=== PATIENT | female | born 1955 | race American Indian/Alaskan Native ===

== ENCOUNTER 2016-11-29 14:20 | Emergency (ER) | payer SELFPAY ==
[2016-11-29 14:32] VITALS: PULSE 78; RESP 20; TEMP 97.8; O2SAT 98
[2016-11-29] MEDS ORDERED: Tetanus/Diphtheria Toxoids 0.5 ml Syringe IM ONE ×2 (14:43→15:15)
[2016-11-29] MEDS ORDERED: Bacitracin 500 Units/gm Oint Foilpak UD ONE (16:44)
--- NOTE | 2016-11-29 17:31 | C.PDOC ---
History Of Present Illness 61 y/o female presents to the ED for evaluation of b/l feet and knee pain which began after she sustained a fall earlier today. Patient states she was walking when she accidentally twisted her left foot and fell onto her knees. She denies fever, chills, head injury, neck pain, LOC, extremity numbness/weakness. - HPI Time Seen by Provider: 11/29/16 14:33 Chief Complaint (Nursing): Trauma History Per: Patient History/Exam Limitations: no limitations Onset/Duration Of Symptoms: Hrs Location Of Injury: Right: Foot, Knee, Left: Foot, Knee Additional History Per: Patient - Fall Fall:Prior To Injury: Tripped Past Medical History Reviewed: Historical Data, Nursing Documentation, Vital Signs Vital Signs: Last Vital Signs Temp 97.8 F 11/29/16 14:29 Pulse 78 11/29/16 17:49 Resp 20 11/29/16 17:49 BP 155/85 H 11/29/16 17:49 Pulse Ox 98 11/29/16 22:01 - Medical History PMH: Hypercholesterolemia Surgical History: No Surg Hx Family History: States: Unknown Family Hx - Social History Hx Alcohol Use: Yes Hx Substance Use: No - Immunization History Hx Tetanus Toxoid Vaccination: No Hx Influenza Vaccination: No Hx Pneumococcal Vaccination: No Review Of Systems Constitutional: Negative for: Fever, Chills Musculoskeletal: Positive for: Foot Pain, Other (+knee pain ). Negative for: Neck Pain Neurological: Positive for: Other (head injury/LOC ). Negative for: Weakness, Numbness Physical Exam - Physical Exam Appears: Non-toxic, No Acute Distress Skin: Normal Color, Warm, Dry, Other (+abrasions to b/l knees. no active bleeding ) Head: Atraumatic, Normacephalic Eye(s): bilateral: Normal Inspection Oral Mucosa: Moist Neck: Supple Chest: Symmetrical, No Deformity, No Tenderness Cardiovascular: Rhythm Regular, No Murmur Respiratory: Normal Breath Sounds, No Rales, No Rhonchi, No Wheezing Extremity: Tenderness (right foot: 2nd and 3rd digits and left lateral malleolus ), Capillary Refill (less than 2 seconds ), Swelling (to left lateral malleolus ) Pulses: Left Dorsalis Pedis: Normal, Right Dorsalis Pedis: Normal Neurological/Psych: Oriented x3, Normal Speech, Normal Cognition Gait: Steady ED Course And Treatment O2 Sat by Pulse Oximetry: 98 (on RA) Pulse Ox Interpretation: Normal Progress Note: Bilateral Knee XR and right foot XR ordered and are unremarkable. Left ankle XR ordered and showed a nondisplaced fracture of 5th metatarsal bone. Patient received Tetanus immunization and Tylenol PO. On reassessment, patient is resting comfortably, showing no signs of distress and reports and improvement in her symptoms. Posterior short leg splint and ortho shoe applied by CP and checked by me. Patient states she does not feel comfortable using crutches and was provided a walker. Patient is stable for discharge and was advised to follow up with agricultural economics professor within 1-2 days for further evaluation. Disposition - Disposition Referrals: Nathaniel Tanner DPM [Staff Provider] - Disposition: HOME/ ROUTINE Disposition Time: 17:29 Condition: STABLE Additional Instructions: Follow up with PMD and Podistrist within 1-2 days. Return to ED if feels worse. Prescriptions: traMADol [Ultram] 50 mg PO Q6 #30 tab Instructions: Foot Fracture in Adults (ED), Contusion in Adults (ED), Abrasion (ED) Forms: [facility] ([place]), Work Excuse - Clinical Impression Clinical Impression: Metatarsal bone fracture, Knee abrasion, Multiple contusions - PA / ASSISTANT LIBRARIAN / Resident Statement MD/DO has reviewed & agrees with the documentation as recorded. - Scribe Statement The provider has reviewed the documentation as recorded by the Scribe (Lyudmila Maier) All medical record entries made by the Scribe were at my direction and personally dictated by me. I have reviewed the chart and agree that the record accurately reflects my personal performance of the history, physical exam, medical decision making, and the department course for this patient. I have also personally directed, reviewed, and agree with the discharge instructions and disposition.
[2016-11-29 17:49] VITALS: BP 155/85
--- NOTE | 2016-11-29 19:29 | RAD ---
Left ankle three views History: Fall. Comparison: None available. Findings: Fracture deformity through the base of the 5th metatarsal bone which is only partially imaged on this study. Visualized ankle mortise is maintained. Talar dome is intact. Mild medial and lateral malleolar soft tissue swelling. Impression: Fracture deformity through the base of the 5th metatarsal bone which is only partially imaged on this study.
--- NOTE | 2016-11-29 19:33 | RAD ---
Bilateral knees four views History: Injury. Comparison: None available. Findings: Right Knee: Transverse oblique vertically oriented lucency through the proximal tibia extending from the medial aspect of the lateral proximal tibial plateau to the medial cortex of the diaphysis. It is not clear whether this represents a fracture deformity and or overlying artifact. Clinical correlation. Correlation with MRI may be helpful if clinically indicated. Mild medial and patellofemoral compartment joint space narrowing. Small suprapatellar joint effusion. Left knee: Mild medial and patellofemoral compartment joint space narrowing. Small suprapatellar joint effusion. Enthesopathic change at the superior bony patella. Impression: Right Knee: Transverse oblique vertically oriented lucency through the proximal tibia extending from the medial aspect of the lateral proximal tibial plateau to the medial cortex of the diaphysis. It is not clear whether this represents a fracture deformity and or overlying artifact. Clinical correlation. Correlation with MRI may be helpful if clinically indicated. Mild medial and patellofemoral compartment joint space narrowing. Small suprapatellar joint effusion. Left knee: Mild medial and patellofemoral compartment joint space narrowing. Small suprapatellar joint effusion. Enthesopathic change at the superior bony patella. If pain persists, consider MRI.
--- NOTE | 2016-11-30 11:34 | RAD ---
PROCEDURE: Right Foot Radiographs. HISTORY: fall COMPARISON: None. FINDINGS: BONES: 1st proximal phalangeal base medial corner nondisplaced fracture with metatarsal phalangeal joint space extension suggested. The medial subcutaneous tissues are hyperdense Small posterior calcaneal spurring. Hammertoe like orientations JOINTS: First metatarsal-phalangeal joint SOFT TISSUES: As above OTHER FINDINGS: None. IMPRESSION: Medial corner nondisplaced 1st proximal phalangeal base chip fracture with intra-articular extension. Comments: Study tagged PA review
== END 2016-11-29 17:57 | disposition home or self-care (01) ==
LOC: C.ER 14:20
DX: S92.355A Nondisplaced fracture of fifth metatarsal bone, left foot, initial encounter for closed fracture (principal); S80.212A Abrasion, left knee, initial encounter; S80.211A Abrasion, right knee, initial encounter; T14.8 Other injury of unspecified body region; W01.0XXA Fall on same level from slipping, tripping and stumbling without subsequent striking against object, initial encounter; Y93.01 Activity, walking, marching and hiking